=== PATIENT | male | born 1960 | race Caucasian/White ===

== ENCOUNTER → 2020-09-29 07:02 | Outpatient (CLI) | payer BC, SELFPAY ==
--- NOTE | ~2020-09-29 | XR_ITS ---
XR hand RT min 3V, XR hand LT min 3V 09/29/2020 07:30 Indication: Deformity of the hands. Procedure: 3 views of each hand Comparison: No prior studies for comparison. Findings: There is polyarticular osteoarthritis involving the right MCP and IP joints as well as the second and third MCP joints. There is osteoarthritis of the left first MCP joint. There are small rad iopaque foreign bodies of the left fifth finger at the MCP and proximal phalangeal levels. No acute f racture or traumatic malalignment. No erosive changes. Impression: 1: Moderate polyarticular osteoarthritis of the hands. Reviewed, dictated and finalized at location A. [employer] Impression: 1: Moderate polyarticular osteoarthritis of the hands. Impression: 1: Moderate polyarticular osteoarthritis of the hands.
== END ==
PROVIDERS: PCP Physician Assistant; Visit Provider Physician Assistant
DX: M19.041 Primary osteoarthritis, right hand (principal); M19.042 Primary osteoarthritis, left hand
CPT/HCPCS: 73130

== ENCOUNTER 2021-04-30 16:31 | Outpatient (CLI) | payer BC, SELFPAY ==
--- NOTE | ~2021-04-30 | CT_ITS ---
EXAMINATION:CT lung screening DATE: 04/30/2021 17:17 INDICATION: Personal history of tobacco dependence. 35 pack year history. TECHNIQUE: Computed tomography (CT) of the chest was performed without intravenous contrast. Automate d exposure control and iterative reconstruction technique were employed. The dose-length product (DLP ) was 243.32 mGy-cm. COMPARISON: None. FINDINGS: There is mild scarring at the lung apices. There is mild emphysema. A calcified right lung nodule and calcified right hilar and mediastinal lymph nodes are consistent with old granulomatous di sease. No pleural effusion. The heart size is normal. There are coronary artery calcifications. No pe ricardial effusion. There is an aberrant right subclavian artery. Calcifications in the spleen are co nsistent with old granulomatous disease. There is diffuse hepatic steatosis. 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 IMPRESSION: 1. Lung-RADS category 2: Benign appearance or behavior. Continue annual screening with noncontrast lo w-dose chest CT in 12 months. Reviewed, dictated and finalized at location A. IMPRESSION: 1. Lung-RADS category 2: Benign appearance or behavior. Continue annual screeni ng with noncontrast low-dose chest CT in 12 months.
== END 2021-04-30 16:32 | disposition home or self-care (01) ==
LOC: ANHIMG 16:35
PROVIDERS: PCP Internal Medicine; Visit Provider Nurse Practitioner
DX: Z87.891 Personal history of nicotine dependence (principal)
CPT/HCPCS: 71271